=== PATIENT | female | born 1955 | race Caucasian/White ===

== ENCOUNTER 2023-09-23 11:58 | Emergency (ER) | payer OTHER, MEDICAID ==
[~2023-09-23] VITALS: Ht 162.6 cm; Wt 102.0 kg
[2023-09-23 12:04] VITALS: O2SAT 99
[2023-09-23] MEDS ORDERED: IBUPROFEN 800MG TABLET PO ONE (12:30)
[2023-09-23] MEDS: IBUPROFEN 400MG TABLET PO NR (12:48)
[2023-09-23] MEDS ORDERED: IBUP-2030 MT (13:06)
[2023-09-23 13:20] VITALS: BP 116/83; PULSE 80; RESP 16; TEMP 98.4
== END 2023-09-23 13:45 | disposition home or self-care (01) ==
LOC: ER 13:24
DX: G89.29 Other chronic pain (principal); M25.519 Pain in unspecified shoulder; I25.2 Old myocardial infarction; I10 Essential (primary) hypertension; E78.00 Pure hypercholesterolemia, unspecified; E11.9 Type 2 diabetes mellitus without complications; J44.1 Chronic obstructive pulmonary disease with (acute) exacerbation; Z76.0 Encounter for issue of repeat prescription; Z98.890 Other specified postprocedural states; Z86.73 Personal history of transient ischemic attack (TIA), and cerebral infarction without residual deficits
CPT/HCPCS: 99283